=== PATIENT | male | born 1950 | race Caucasian/White ===

== ENCOUNTER 2017-09-27 07:17 | Day surgery (SDC) | payer MEDICARE ==
[~2017-09-27] VITALS: Ht 185.4 cm; Wt 90.9 kg
[~2017-09-27 07:17] MED LIST: AMOXICILLIN 8751 TAB PO; ASPIRIN 81M81 MG/TA2 PO; ASPIRIN E.C. 8181 MG PO; BRILINTA90 MG PO; CARDI-OMEGA1000 MG PO; FERROUS SULFATE27 MG PO; FLOMAX 0.40.4 MG/CAP PO; GLUCOSAMINE S1000 MG PO; GLUCOSAMINE500 MG PO; LIPITOR 40MG TA40 MG PO; MIRALAX119G PO; MULTIPLE VITAMI1 CAP PO; NASACORT OTC NS; NIACIN500 M3 PO; NIFEDIPINE OINTMENT; NITROSTAT0.4 MG/TAB SL; NORVASC 5MG5 MG/TAB PO; OMEGA-3 1000 MG1 CAP PO; PRINIVIL5 MG PO; PROTONIX 40MG T40 MG PO; PROTONIX20 MG PO; TOPROL XL 25MG25 MG PO; ULTRAM 50MG TAB50 MG PO; VITAMIN C500 MG PO; VITAMIN D1000 IU PO; VITAMIN D2000 I1 PO; VYTORIN 10 MG-11 TAB PO; VYTORIN 10 MG-21 TAB PO; ZETIA 10MG TAB10 MG PO
[2017-09-27] MEDS ORDERED: NORVASC 10MG10 MG PO (07:41)
[2017-09-27 07:59] VITALS: BP 126/69; PULSE 44; TEMP 98
[2017-09-27 09:00] VITALS: BP 126/69; PULSE 47
[2017-09-27 09:15] VITALS: BP 125/61; PULSE 45
[2017-09-27 09:30] VITALS: BP 129/68; PULSE 61
[2017-09-27 09:45] VITALS: BP 129/69; PULSE 42
== END 2017-09-27 10:02 | disposition home or self-care (01) ==
LOC: SDCO 07:17
DX: K21.0 Gastro-esophageal reflux disease with esophagitis (principal); I25.10 Atherosclerotic heart disease of native coronary artery without angina pectoris; K92.1 Melena; K59.00 Constipation, unspecified; K62.89 Other specified diseases of anus and rectum; Z95.5 Presence of coronary angioplasty implant and graft; Z85.46 Personal history of malignant neoplasm of prostate
CPT/HCPCS: OP; J2250; J3010; J7030

== ENCOUNTER 2018-09-01 13:31 | Outpatient (RCR) | payer SELFPAY ==
[~2018-09-01 13:31] MED LIST changes: +NORVASC 10MG10 MG PO
== END 2018-09-04 | disposition home or self-care (01) ==
LOC: COL.CR
DX: Z02.89 Encounter for other administrative examinations (principal)

== ENCOUNTER 2018-09-19 13:11 | Outpatient (RCR) | payer SELFPAY | END 2018-11-30 | disposition home or self-care (01) | LOC: COL.CR | DX: Z02.89 Encounter for other administrative examinations (principal) ==

== ENCOUNTER 2019-04-10 14:46 | Outpatient (RCR) | payer SELFPAY | END 2019-04-14 | disposition home or self-care (01) | LOC: COL.CR | DX: Z02.89 Encounter for other administrative examinations (principal) ==

== ENCOUNTER → 2019-07-14 | Outpatient (RCR) | payer SELFPAY | END | disposition home or self-care (01) | LOC: COL.CR | DX: Z02.89 Encounter for other administrative examinations (principal) ==

== ENCOUNTER 2019-09-01 10:00 | Outpatient (RCR) | payer MEDICARE | END 2019-10-15 | disposition home or self-care (01) | LOC: WSPT | DX: R10.30 Lower abdominal pain, unspecified (principal) ==

== ENCOUNTER 2019-09-16 14:54 | Outpatient (RCR) | payer SELFPAY | END 2019-10-18 | disposition home or self-care (01) | LOC: COL.CR | DX: Z02.89 Encounter for other administrative examinations (principal) ==

== ENCOUNTER → 2020-05-12 | Outpatient (CLI) | payer MEDICARE ==
[2020-05-12 18:24] LABS: SYNOVIAL FL. MONONUCLEAR 7.4 % (0-75); SYNOVIAL FLUID RBC 3000 /mm3 (0-0); SYNOVIAL FLUID WBC 29380 /mm3 (200-600)
[2020-05-12 19:01] LABS: SYNOVIAL FLUID APPEARANCE CLOUDY; SYNOVIAL FLUID COLOR YELLOW
== END ==
LOC: ZCOL.LAB 17:28
PROVIDERS: Orthopaedic Surgery
DX: M25.561 Pain in right knee (principal); M25.511 Pain in right shoulder

== ENCOUNTER 2020-05-16 17:12 | Inpatient (IN) | payer MEDICARE, OTHER ==
[2020-05-16] VITALS (80 sets, daily range): BP systolic 151; BP diastolic 83; PULSE 73; TEMP 98; O2SAT 94–97
[~2020-05-16] VITALS: Ht 185.4 cm; Wt 90.9 kg
[2020-05-16] MEDS ORDERED: ONE-A-DAY ESSE1 EACH PO (17:36)
[2020-05-16 18:24] LABS: BASO # 0.1 (0.0-0.2); BASO % 0.9 % (0.0-2.0); EOS # 0.2 (0.0-0.7); EOS % 2.5 % (0-4.0); GRAN # 4.6 (1.4-6.5); GRAN % 66.3 % (42.2-75.2); HEMATOCRIT 43.9 % (42.0-52.0); HEMOGLOBIN 15.2 g/dl (13.5-18.0); LYMPH # 1.2 (1.2-3.4); LYMPH % 16.7 % (20.0-51.0); MEAN CELL VOLUME 86 fl (80.0-100.0); MEAN CORPUSCULAR HEMOGLOBIN 30 pg (27.0-31.0); MEAN CORPUSCULAR HGB CONC 35 g/dl (33.0-37.0); MEAN PLATELET VOLUME 9.4 fl (7.4-10.4); MONO # 0.9 (0.1-0.6); MONO % 13.3 % (1.7-9.3); PLATELET COUNT 278 K/mm3 (130-400); REDCELL DISTRIBUTION WIDTH-CV 13.1 % (11.5-14.5)
[2020-05-16 18:26] LABS: PROTHROMBIN TIME 11.6 SECONDS (9.7-12.8)
[2020-05-16 18:28] LABS: PARTIAL THROMBOPLASTIN TIME 34.5 SECONDS (26.0-37.0)
[2020-05-16 18:38] LABS: ALANINE AMINOTRANSFERASE 61 U/L (4-49); ALBUMIN 4.3 gm/dL (3.5-5.0); ALKALINE PHOSPHATASE 131 U/L (50-136); ANION GAP 9 mmol/L (7-16); AST,SGOT 46 U/L (15-37); BILIRUBIN,TOTAL 0.8 mg/dL (0.0-1.0); BLOOD UREA NITROGEN 24 mg/dL (9-20); CALCIUM 9.7 mg/dL (8.4-10.2); CARBON DIOXIDE 27 mmol/L (22-30); CHLORIDE 96 mmol/L (98-107); CREATININE, serum 0.89 (0.66-1.25); GLUCOSE 130 mg/dL (74-106); POTASSIUM 4.7 mmol/L (3.4-5.0); SODIUM 132 mmol/L (137-145); TOTAL PROTEIN 8.2 gm/dL (6.4-8.2)
[2020-05-16 18:51] LABS: TROPONIN-I < 0.012 ng/mL (0.000-0.035)
--- NOTE | 2020-05-16 21:41 | NUR ---
RECEIVED REPORT FROM ROBBY SHELDON IN ER. AWAITING ARRIVAL OF PT TO ICU 7.
--- NOTE | 2020-05-16 21:53 | NUR ---
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 PT ABLE TO STAND AND USE URINAL AT BEDSIDE AND THEN ADJUST SELF INTO ICU BED. PLACED ON BEDSIDE COTINUOUS MONITOR. CALL LIGHT EDUCATION GIVEN, VERBALIZED UNDERSTANDING. NOTIFIED EDUARDO, A PT HAS ARRIVED, STATES PT WAS SEEN IN ER BY PREVIOUS HOSPITALIST.
--- NOTE | 2020-05-16 22:45 | NUR ---
UPDATED SONBEENA ON PT'S STATUS PER PT'S REQUEST. CODE NUMBER GIVEN TO SON AND PT'S
--- NOTE | 2020-05-16 22:48 | NUR ---
MAURY CLARK NOTIFIED OF TROPONIN 0.095 INCREASED FROM LAST DRAW. STATES WILL MONITOR CLOSELY.
[2020-05-17] VITALS (599 sets, daily range): BP systolic 139–148; BP diastolic 68–83; PULSE 71–78; TEMP 98–98.5; O2SAT 93–100
--- NOTE | 2020-05-17 00:04 | NUR ---
PT C/O MIDSTERNAL ANGINA, MAURY CLARK NOTIFIED, SEE MAR FOR NEW ORDERS. PAIN 02/06.
[2020-05-17 06:01] LABS: GRAN # 3.7 (1.4-6.5); GRAN % 84.2 % (42.2-75.2); HEMATOCRIT 39.9 % (42.0-52.0); LYMPH # 0.5 (1.2-3.4); LYMPH % 11.8 % (20.0-51.0); MEAN CELL VOLUME 86 fl (80.0-100.0); MEAN CORPUSCULAR HEMOGLOBIN 30 pg (27.0-31.0); MEAN CORPUSCULAR HGB CONC 35 g/dl (33.0-37.0); MEAN PLATELET VOLUME 9.3 fl (7.4-10.4); MONO # 0.2 (0.1-0.6); MONO % 3.5 % (1.7-9.3); PLATELET COUNT 259 K/mm3 (130-400); RED BLOOD COUNT 4.65 M/mm3 (4.20-5.60)
[2020-05-17 06:11] LABS: ALBUMIN 3.7 gm/dL (3.5-5.0); BILIRUBIN,TOTAL 0.6 mg/dL (0.0-1.0); CALCIUM 9.2 mg/dL (8.4-10.2); CREATININE, serum 0.67 (0.66-1.25); POTASSIUM 4.6 mmol/L (3.4-5.0); TOTAL PROTEIN 7.2 gm/dL (6.4-8.2)
[2020-05-17 06:19] LABS: TROPONIN-I 0.048 ng/mL (0.000-0.035)
[2020-05-17] MEDS ORDERED: MEDROL 4MG DOSPA4 MG PO (14:09)
[2020-05-17] MEDS ORDERED: PEPCID 20MG TAB20 MG PO (14:09)
[2020-05-17] MEDS ORDERED: EPIPEN 2-PAK1 MG/ML IM (14:14)
--- NOTE | 2020-05-17 14:23 | NUR ---
The patient discharged before intake could be complete.
--- NOTE | 2020-05-17 14:45 | NUR ---
dISHCARGE PACKET REVIEWED AND FOLLOW UP APPTS DISCUSSED. PATIENT VERBALIZES UNDERSTANDING.
== END 2020-05-17 14:45 | disposition home or self-care (01) | DRG 915 ==
LOC: COL.ER 17:12 → ICU 19:33
PROVIDERS: Family Medicine; Physician Assistant; ADMIT Internal Medicine
DX: T78.3XXA Angioneurotic edema, initial encounter (principal); I21.A1 Myocardial infarction type 2; T46.4X5A Adverse effect of angiotensin-converting-enzyme inhibitors, initial encounter; E78.1 Pure hyperglyceridemia; E87.8 Other disorders of electrolyte and fluid balance, not elsewhere classified; I25.10 Atherosclerotic heart disease of native coronary artery without angina pectoris; I10 Essential (primary) hypertension; E78.5 Hyperlipidemia, unspecified; K21.9 Gastro-esophageal reflux disease without esophagitis; G62.9 Polyneuropathy, unspecified; M25.561 Pain in right knee; Z88.6 Allergy status to analgesic agent; Z95.5 Presence of coronary angioplasty implant and graft; Z95.1 Presence of aortocoronary bypass graft
CPT/HCPCS: 99223-AI; 99239; J0171; J1100; J1170; J1200; J3360; J7030; J7120; J7512

== ENCOUNTER 2021-06-04 10:29 | Inpatient (IN) | payer MEDICARE, OTHER ==
[~2021-06-04] VITALS: Ht 185.4 cm; Wt 83.6 kg
[~2021-06-04 10:29] MED LIST changes: +EPIPEN 2-PAK1 MG/ML IM; +MEDROL 4MG DOSPA4 MG PO; +ONE-A-DAY ESSE1 EACH PO; +PEPCID 20MG TAB20 MG PO
[2021-06-04 10:40] LABS: BASO % 0.7 % (0.0-2.0); EOS # 0.1 (0.0-0.7); EOS % 1.2 % (0-4.0); GRAN # 2.3 (1.4-6.5); HEMATOCRIT 41.4 % (42.0-52.0); HEMOGLOBIN 14.8 g/dl (13.5-18.0); LYMPH % 24.4 % (20.0-51.0); MEAN CELL VOLUME 83 fl (80.0-100.0); MEAN CORPUSCULAR HEMOGLOBIN 30 pg (27.0-31.0); MEAN CORPUSCULAR HGB CONC 36 g/dl (33.0-37.0); MEAN PLATELET VOLUME 9.4 fl (7.4-10.4); MONO # 0.7 (0.1-0.6); MONO % 16.5 % (1.7-9.3); PLATELET COUNT 172 K/mm3 (130-400); REDCELL DISTRIBUTION WIDTH-CV 14.1 % (11.5-14.5)
[2021-06-04 10:49] LABS: ALANINE AMINOTRANSFERASE 16 U/L (4-49); ALBUMIN 4.4 gm/dL (3.5-5.0); ALKALINE PHOSPHATASE 81 U/L (50-136); ANION GAP 7 mmol/L (7-16); AST,SGOT 26 U/L (15-37); BLOOD UREA NITROGEN 14 mg/dL (9-20); CALCIUM 9.5 mg/dL (8.4-10.2); CARBON DIOXIDE 28 mmol/L (22-30); CHLORIDE 102 mmol/L (98-107); CREATININE, serum 0.83 (0.66-1.25); GLUCOSE 92 mg/dL (74-106); POTASSIUM 4.3 mmol/L (3.4-5.0); SODIUM 137 mmol/L (137-145); TOTAL PROTEIN 7.3 gm/dL (6.4-8.2)
[2021-06-04 11:06] LABS: TROPONIN-I < 0.012 ng/mL (0.000-0.035)
[2021-06-04] MEDS ORDERED: IMDUR 30MG30 MG/TAB PO (12:01)
[2021-06-04] MEDS ORDERED: RANEXA 500MG T500 MG PO (12:01)
[2021-06-04] MEDS ORDERED: REPATHA SU140 MG/1 M SQ (12:02)
--- NOTE | 2021-06-04 13:29 | NUR ---
Assessment completed, alert/oriented, vital signs stable, reports continues mild chest discomfort, NItro patch on, heparin gtt contineus at 10ml/hr and will follow per protocl, heart RRR/ SR on tele, lungs CTA/ no resp.difficulty, serial Trop will be checked, he is indepednent in his room and denies other needs, I have updated and rreviewed his Home meds/allergies/pharmacy info with him
[2021-06-04 13:32] VITALS: BP 136/66; PULSE 56; TEMP 98.4
[2021-06-04] MEDS ORDERED: OZEMPIC0.25 MG/0. SQ (13:34)
[2021-06-04 16:27] VITALS: BP 122/64; PULSE 58; TEMP 97.9
[2021-06-04 20:05] VITALS: BP 120/52; PULSE 57; TEMP 98.1
--- NOTE | 2021-06-04 21:07 | NUR ---
Patient assessed around 2004. Alert and oriented x 4, and able to make needs known. Denies having pain and discomfort at this time. Peripheral IV to left forearm with heparin drip running at 850 units/hr per orders. Will recheck HepXa around 114. denies SOB and dyspnea. LS CTA. Respirations even and unlabored. HR-SB. Capillary refill less than 3 seconds. Non-tenting skin turgor. BSAx4. Abdomen soft and non-tender. No edema. Patient voices no questions, needs, or concerns at this time. Resting in bed with call light within reach.
[2021-06-04 23:35] VITALS: BP 119/53; PULSE 59; TEMP 98.6
--- NOTE | 2021-06-05 02:20 | NUR ---
HepXa 0.4. Decreased rate to 750 units/hr or 7.5 ml/hr. Will recheck at 0815.
[2021-06-05 03:34] VITALS: BP 114/45; PULSE 62; TEMP 97.8
--- NOTE | 2021-06-05 05:46 | NUR ---
Patient continues on Heparin drip per protocol. Denies pain and discomfort at this time. Voices no questions, needs, or concerns. Resting in bed with call light within reach.
[2021-06-05 09:01] LABS: BASO % 0.8 % (0.0-2.0); EOS # 0.1 (0.0-0.7); EOS % 1.8 % (0-4.0); GRAN # 2.3 (1.4-6.5); GRAN % 59.3 % (42.2-75.2); HEMATOCRIT 39.8 % (42.0-52.0); LYMPH % 25.7 % (20.0-51.0); MEAN CELL VOLUME 84 fl (80.0-100.0); MEAN CORPUSCULAR HEMOGLOBIN 29 pg (27.0-31.0); MEAN CORPUSCULAR HGB CONC 35 g/dl (33.0-37.0); MONO # 0.5 (0.1-0.6); MONO % 12.1 % (1.7-9.3); PLATELET COUNT 174 K/mm3 (130-400); RED BLOOD COUNT 4.76 M/mm3 (4.20-5.60); REDCELL DISTRIBUTION WIDTH-CV 14.3 % (11.5-14.5)
[2021-06-05 09:13] LABS: ANION GAP 7 mmol/L (7-16); BLOOD UREA NITROGEN 15 mg/dL (9-20); CARBON DIOXIDE 23 mmol/L (22-30); CHLORIDE 103 mmol/L (98-107); CHOLESTEROL 90 mg/dL (120-200); CHOLESTEROL RISK RATIO 2.1; CREATININE, serum 0.84 (0.66-1.25); GLUCOSE 154 mg/dL (74-106); HDL CHOLESTEROL 42 mg/dL; LDL CHOLESTEROL 9 mg/dL; POTASSIUM 4.1 mmol/L (3.4-5.0); SODIUM 133 mmol/L (137-145); TRIGLYCERIDE 195 mg/dL
--- NOTE | 2021-06-05 09:13 | NUR ---
Patient resting in bed upon entering the room. Has no complaints at this time. Asked about his procedure tomorrow, all questions answered. Patient very pleasant.
--- NOTE | 2021-06-05 09:16 | NUR ---
Patient's Hep Xa came back at 0.33, which is goal range. No adjusment made, redraw scheduled for 1414.
[2021-06-05 09:23] LABS: TROPONIN-I < 0.012 ng/mL (0.000-0.035)
[2021-06-05 09:46] VITALS: BP 116/66; PULSE 58; TEMP 97.8
--- NOTE | 2021-06-05 12:09 | NUR ---
Ori met with the pt who stated his preference to return home once medically stable. The pt lives at home with his , Jenni (ph# [phone]). The pt is independent on all ALS and does not use any DME. The pt does have [facility] and is in the chart. The PT does not have a PCP at this time,but i thinking about using [facility]. The pt gets medications from [facility]. No other needs stated at this time. Ori to await further recommendations and follow up as needed. D/C: Home with .
[2021-06-05 12:49] VITALS: BP 126/64; PULSE 58; TEMP 98.6
[2021-06-05 16:00] VITALS: BP 125/70; PULSE 59; TEMP 98.3
--- NOTE | 2021-06-05 18:19 | NUR ---
Heparin drip remains running at 7.5mL, Hep Xa redraw ordered. Consent signed and on front of chart for cardiac cath tomorrow.
[2021-06-05 19:20] VITALS: BP 132/69; PULSE 58; TEMP 97.8
--- NOTE | 2021-06-05 21:41 | NUR ---
Patient assessed around 194. Alert and oriented x 4, and able to make needs known. Denies having pain and discomfort. Denies SOB and dyspnea. LS CTA. Respirations even and unlabored. HRR-SB, 50s. Capillary refill less than 3 seconds. non-tenting skin turgor. BSAx4. Abdomen soft and non-tender. No edema. Continues on Heparin drip at 750 units/hr, or 7.5 ml/hr per protocol. Recheck in the morning. Called MAURY Del Valle and got order for PRN Melatonin as patient requested. Patient aware he is NPO after midnight for heart cath tomorrow. Voices no questions, needs, or concerns at this time. Resting in bed with call light within reach.
[2021-06-05 23:40] VITALS: BP 122/52; PULSE 57; TEMP 98.3
[2021-06-06] VITALS (17 sets, daily range): BP systolic 104–139; BP diastolic 50–72; PULSE 50–61; TEMP 97.5–98.7
--- NOTE | 2021-06-06 10:33 | NUR ---
Initial visit; Patient thanked P[employer]ctor for looking in on him, offering encouragement and prayer along with God's blessings that he be healed of his heart issues.
--- NOTE | 2021-06-06 11:03 | NUR ---
Pt left for heart cath at this time.
--- NOTE | 2021-06-06 11:27 | NUR ---
SEE MERGE FOR ALL MEDICATION ADMINISTRATION TIMES, INTRA AND POST SEDATION ASSESSMENTS
--- NOTE | 2021-06-06 18:21 | NUR ---
Pt off of bed rest, ambulated with staff. Had no dizziness or pain. Site to R femoral no longer oozing, sites marked. No needs at this time. Call light within reach.
--- NOTE | 2021-06-06 20:47 | NUR ---
PT RESTING IN BED. EVENING MEDICATIONS GIVEN. PT R FEMORAL CATHETERIZATION SITE HAD SOME DRAINAGE FOLLOWING PROCEDURE BUT HAS STOPPED. NO SWELLING AT THE SITE AND PT DENIES ANY PAIN. PT HAS BEEN AMBULATING IN THE HALLS SEVERAL TIMES. DENIES ANY NEEDS AT THIS TIME. WILL CONTINUE TO MONITOR.
[2021-06-07 04:00] VITALS: BP 124/62; PULSE 57; TEMP 98.2
[2021-06-07 07:20] LABS: BASO % 0.2 % (0.0-2.0); EOS # 0.1 (0.0-0.7); EOS % 1.7 % (0-4.0); GRAN # 3.5 (1.4-6.5); GRAN % 67.8 % (42.2-75.2); HEMATOCRIT 40.7 % (42.0-52.0); HEMOGLOBIN 13.8 g/dl (13.5-18.0); LYMPH # 0.9 (1.2-3.4); LYMPH % 16.3 % (20.0-51.0); MEAN CELL VOLUME 86 fl (80.0-100.0); MEAN CORPUSCULAR HEMOGLOBIN 29 pg (27.0-31.0); MEAN CORPUSCULAR HGB CONC 34 g/dl (33.0-37.0); MEAN PLATELET VOLUME 9.8 fl (7.4-10.4); MONO # 0.7 (0.1-0.6); MONO % 13.8 % (1.7-9.3); PLATELET COUNT 166 K/mm3 (130-400); RED BLOOD COUNT 4.75 M/mm3 (4.20-5.60); REDCELL DISTRIBUTION WIDTH-CV 14.3 % (11.5-14.5)
[2021-06-07 07:33] LABS: CALCIUM 9.1 mg/dL (8.4-10.2); CREATININE, serum 0.81 (0.66-1.25); POTASSIUM 4.2 mmol/L (3.4-5.0)
[2021-06-07 08:00] VITALS: BP 103/59; PULSE 64; TEMP 96.1
--- NOTE | 2021-06-07 08:14 | NUR ---
Pt assessment complete. Pt is sitting up in the chair eating breakfast upon entry. Pt states he is not feeling very well this am. Reports he had been sitting for about ten minutes before feeling very flushed and dizzy. Symptoms have since subsided. Discussed heart rate and blood pressure with patient. Pt reports he takes his Metoprolol at night, requested this from pharmacy. Pt has no other chest pain or palpitations. No needs at this time. Call light within reach.
[2021-06-07 11:34] VITALS: BP 116/66; PULSE 64; TEMP 98.6
[2021-06-07] MEDS ORDERED: RANEXA1000 MG PO (13:23)
[2021-06-07] MEDS ORDERED: IMDUR 60MG60 MG/TAB PO (13:24)
[2021-06-07] MEDS ORDERED: TOPROL XL 50MG50 MG PO (13:25)
--- NOTE | 2021-06-07 13:55 | NUR ---
Discharge paperwork and instructions reviewed with patient. IV to RFA dc'd catheter tip intact. Pt walked out of facility by staff at this time.
== END 2021-06-07 13:55 | disposition home or self-care (01) | DRG 287 ==
LOC: COL.ER 10:29 → MEDICAL 11:25
PROVIDERS: Emergency Medicine; ADMIT Internal Medicine
PROC: B2181ZZ Fluoroscopy of Left Internal Mammary Bypass Graft using Low Osmolar Contrast (ICD-10-PCS; principal; 2021-06-04)
PROC: B5181ZZ Fluoroscopy of Superior Vena Cava using Low Osmolar Contrast (ICD-10-PCS; 2021-06-04)
PROC: B2111ZZ Fluoroscopy of Multiple Coronary Arteries using Low Osmolar Contrast (ICD-10-PCS; 2021-06-04)
PROC: 4A023N7 Measurement of Cardiac Sampling and Pressure, Left Heart, Percutaneous Approach (ICD-10-PCS; 2021-06-04)
DX: I25.110 Atherosclerotic heart disease of native coronary artery with unstable angina pectoris (principal); K21.9 Gastro-esophageal reflux disease without esophagitis; I10 Essential (primary) hypertension; I25.10 Atherosclerotic heart disease of native coronary artery without angina pectoris; G62.9 Polyneuropathy, unspecified; Z20.822 Contact with and (suspected) exposure to COVID-19; Z95.1 Presence of aortocoronary bypass graft; Z95.818 Presence of other cardiac implants and grafts; Z79.82 Long term (current) use of aspirin; Z90.79 Acquired absence of other genital organ(s)
CPT/HCPCS: 99223-AI; 99232-AI; 99239; C1760; C1769; C1887; C1894; J0583; J1644; J2250; J3010; Q9967

== ENCOUNTER 2021-07-14 12:57 | Outpatient (RCR) | payer SELFPAY ==
[~2021-07-14 12:57] MED LIST changes: +IMDUR 30MG30 MG/TAB PO; +IMDUR 60MG60 MG/TAB PO; +OZEMPIC0.25 MG/0. SQ; +RANEXA 500MG T500 MG PO; +RANEXA1000 MG PO; +REPATHA SU140 MG/1 M SQ; +TOPROL XL 50MG50 MG PO
== END 2021-07-23 | disposition home or self-care (01) ==
LOC: COL.CR
DX: Z02.89 Encounter for other administrative examinations (principal)

== ENCOUNTER 2022-01-26 16:01 | Outpatient (RCR) | payer SELFPAY | END 2022-01-27 | LOC: COL.CR | DX: Z29.8 Encounter for other specified prophylactic measures (principal) ==

== ENCOUNTER 2022-02-21 14:55 | Outpatient (RCR) | payer SELFPAY | END 2022-02-27 | LOC: COL.CR | DX: Z29.8 Encounter for other specified prophylactic measures (principal) ==

== ENCOUNTER 2022-03-28 14:40 | Outpatient (RCR) | payer SELFPAY | END 2022-03-29 | LOC: COL.CR | DX: Z29.8 Encounter for other specified prophylactic measures (principal) ==

== ENCOUNTER 2022-04-25 13:16 | Outpatient (RCR) | payer SELFPAY | END 2022-04-29 | LOC: COL.CR | DX: Z29.8 Encounter for other specified prophylactic measures (principal) ==

== ENCOUNTER → 2022-05-30 | Outpatient (RCR) | payer SELFPAY | LOC: COL.CR | DX: Z29.8 Encounter for other specified prophylactic measures (principal) ==